=== PATIENT | female | born 1955 | race Caucasian/White ===

== ENCOUNTER 2025-03-13 22:30 | Inpatient (IN) | payer OTHER ==
[~2025-03-13] VITALS: Ht 165.1 cm; Wt 112.9 kg
--- NOTE | 2025-03-13 23:28 | ED.PDOC ---
History of Present Illness HPI Comments 69-year-old female with history of hypothyroidism brought in by EMS from home complaining of left lower back, buttock, flank and lateral hip and thigh pain status post heavy lifting injury. Patient states she was assisting her roommate today into a seated position after a fall. As she was lifting her roommate, she felt a sudden sharp pain in her left lower back and buttock, which now radiates to her lateral hip and thigh. She states that the pain is not present at rest, but is severe when she moves, and feels like a very sharp pain and spasm. She states she took 1/2 of a Soma tablet has been applying heat packs without relief. States she has been unable to ambulate and transfer independently due to the pain. She denies any saddle numbness, urinary or stool retention or incontinence or other injury. Chief Complaint: Back Pain Time Seen by MD: 22:40 Mode of Arrival: EMS Past Medical History PAST MEDICAL HISTORY: Thyroid Surgical History: Appendectomy, Cholecystectomy, Hysterectomy, Tonsillectomy Surgical History (Other): Thyroglossal cyst removal STAFF MIDWIFE/APPRENTICESHIP DIRECTOR History: No Pertinent STAFF MIDWIFE/APPRENTICESHIP DIRECTOR History Family History Family History: Reviewed,noncontributory to illness Social History Smoker: Non-Smoker Alcohol: Occasionally Drugs: Denies Drug Use Lives In: Home All Other Systems: Reviewed and Negative (Comprehensive systems review obtained and negative except for what is stated in the HPI.) Physical Exam General Appearance: No Apparent Distress, Obese HEENT: Other (Pupils and face symmetric. Moist mucous membranes.) Neck: Full Range of Motion, Non-Tender, Normal Inspection, Supple Respiratory: Lungs Clear, No Accessory Muscle Use, No Respiratory Distress, Normal Breath Sounds Cardiovascular: No Edema, No JVD, Regular Rate/Rhythm Breast Exam: Deferred Gastrointestinal: Non Tender, Soft Genitalia: Deferred Pelvic: Deferred Rectal: Deferred Extremities: Tender, Other (Left-sided lower lumbosacral, buttock, lateral hip and thigh soft tissue tenderness/spasm) Neurologic: Alert (Oriented x4), Normal Affect, Normal Mood, No Sensory Deficits, Other (Moves all extremities. No gross focal deficit.) Cerebellar Function: NOT DONE Reflexes: NOT DONE Skin: Dry, Normal Color, Warm Lymphatic: NOT DONE Was a procedure done? Was a procedure done?: No EKG EKG : Comments Atrial rhythm, rate 92, normal intervals, normal axis, normal QRS, no ST/T dotson ges. Baseline wander. Differential Dx Considerations may include: Musculoskeletal pain, muscle strain/spasm, disc disease, among others X-Ray, Labs, Meds, VS Vital Signs Date Time Temp Pulse Resp B/P (MAP) Pulse Ox O2 Delivery O2 Flow Rate FiO2 03/13/25 22:40 98.3 91 18 148/88 (108) 99 98.3 03/13/25 22:30 92 Lab Test 03/13/25 23:40 Range/Units White Blood Count 10.1 4.4-10.8 10^3/uL Red Blood Count 5.13 4.0-5.20 10^6/uL Hemoglobin 15.3 12.2-16.2 g/dL Hematocrit 46.6 H 36.0-46.0 % Mean Corpuscular Volume 90.8 80.0-100.0 fL Mean Corpuscular Hemoglobin 29.7 28.0-32.0 pg Mean Corpuscular Hemoglobin Concent 32.7 32.0-36.0 g/dL Red Cell Distribution Width 14.1 11.8-14.3 % Platelet Count 256 140-450 10^3/uL Mean Platelet Volume 7.6 6.9-10.8 fL Neutrophils (%) (Auto) 64.8 37.0-80.0 % Lymphocytes (%) (Auto) 24.9 10.0-50.0 % Monocytes (%) (Auto) 9.0 0.0-12.0 % Eosinophils (%) (Auto) 0.9 0.0-7.0 % Basophils (%) (Auto) 0.4 0.0-2.0 % Neutrophils # (Auto) 6.6 1.6-8.6 10 ^3/uL Lymphocytes # (Auto) 2.5 0.4-5.4 10 ^3/uL Monocytes # (Auto) 0.9 0-1.3 10 ^3/uL Eosinophils # (Auto) 0.1 0-0.8 10 ^3/uL Basophils # (Auto) 0 0-0.2 10 ^3/uL Nucleated Red Blood Cells 0.1 % Sodium Level 140 136-145 mmol/L Potassium Level 4.1 3.5-5.1 mmol/L Chloride Level 107 98-107 mmol/L Carbon Dioxide Level 22 20-31 mmol/L Anion Gap 11 5-15 Blood Urea Nitrogen 18 9-23 mg/dL Creatinine 1.12 H 0.550-1.02 mg/dL Glomerular Filtration Rate Calc 54 >90 mL/min BUN/Creatinine Ratio 16.1 10.0-20.0 Serum Glucose 119 H 74-106 mg/dL Calcium Level 9.6 8.7-10.4 mg/dL PROCEDURE(s): LS2CT - LS SPINE WO CONTRAST REASON: L low back/buttock/hip pain s/p heavy lifting ORDER NUMBER(s): [id number], ACCESSION NUMBER(s): [id number] EXAM: CT LS SPINE WO CONTRAST INDICATION: L low back/buttock/hip pain s/p heavy lifting TECHNIQUE: Axial images of the lumbar spine have been obtained along with coronal and sagittal reformatted images. CT scans at this facility use dose modulation, iterative reconstruction, and/or weight based dosing when appropriate to reduce radiation dose to as low as reasonably achievable. COMPARISON: None Dose: CTDIvol: 38.22 mGy, DLP: 1383.17 mGy.cm FINDINGS: There is transitional lumbosacral anatomy. There is age-indeterminate mild cortical irregularity of the superior endplate of T12. There is no retropulsion. There are degenerative changes of the lumbar spine characterized by endplate osteophytosis intervertebral disc space narrowing. There is vacuum disc phenomenon at L4-5. The paraspinal soft tissues are unremarkable. There is a right renal cyst, incompletely assessed. At T12-L1 through L3-4, there is no significant spinal canal or neural foraminal narrowing. At L4-5, there is intervertebral disc space narrowing and vacuum disc phenomenon. A disc protrusion effaces the thecal sac. There is facet arthropathy. There is at least mild left neural foraminal narrowing. And L5-S1, there is intervertebral disc space narrowing without significant spinal canal or neural foraminal stenosis. IMPRESSION: 1. No definite acute displaced fracture. Age-indeterminate mild cortical irregularity of the superior endplate of T12 without retropulsion. Comparison with any prior outside imaging would be helpful in assessing acuity and interval change. 2. Degenerative changes of the lumbar spine as detailed, with a disc protrusion at L4-5. This may be further evaluated with MRI if clinically indicated. X-Ray, Labs, Meds, VS Comment 69-year-old female with a history of thyroid disease brought in by EMS from home complaining of left-sided low back, buttock, flank, hip and lateral thigh pain status post heavy lifting injury Vitals remarkable for BP 148/88 Exam remarkable for lower left-sided lumbosacral, left buttock, lateral hip and thigh soft tissue tenderness/spasm CT LS spine: IMPRESSION: 1. No definite acute displaced fracture. Age-indeterminate mild cortical irregularity of the superior endplate of T12 without retropulsion. Comparison with any prior outside imaging would be helpful in assessing acuity and interval change. 2. Degenerative changes of the lumbar spine as detailed, with a disc protrusion at L4-5. This may be further evaluated with MRI if clinically indicated. CBC unremarkable, basic metabolic panel remarkable for creatinine 1.12, UA pen ding Patient treated with the following in the ED: [place] 5/325 mg 2 tabs p.o., Robaxin 1 g p.o., Zofran ODT 4 mg p.o. On re-evaluation, patient's pain has improved, but she is still having extreme difficulty moving and appears to be at risk for falls. Plan is to admit the patient for possible spine MRI, pain control and PT/OT evaluation. Time of 1ST Reevaluation: 23:27 Reevaluation 1ST: Unchanged Patient Education/Counseling: Diagnosis, Treatment, Need For Follow Up Family Education/Counseling: No Family Present SEPSIS Sepsis Screen Date sepsis recognized/suspect: Mar 13, 2025 Time Sepsis recognized/suspect: 2239 Recent Procedure: No On Antibiotic Therapy: No Respiratory Rate >20: No Heart Rate >90: No Temp<36 C (96.8 F) or >38.3 C: No SBP <90 or MAP <65 mmHG: No New Acute Mental Status Change: No Is the patient on CPAP, BIPAP,: No Physician Orders Ls Spine Wo Contrast (03/13/25 22:53) Urinalysis (03/13/25 22:53) Vital Signs Date Time Temp Pulse Resp B/P (MAP) Pulse Ox O2 Delivery O2 Flow Rate FiO2 03/13/25 22:40 98.3 91 18 148/88 (108) 99 98.3 03/13/25 22:30 92 Laboratory Tests Test 03/13/25 23:40 White Blood Count 10.1 10^3/uL (4.4-10.8) Departure 1 Departure Time of Disposition: 01:52 Impression: Primary Impression: Lumbar sprain Additional Impressions: Strain of left buttock Muscle strain of thigh Muscle spasm Degenerative disc disease Disposition: ADMITTED INPATIENT Admit to: Med Surg Condition: Guarded Critical Care Note Critical Care Time?: No Stability Stability form required: No Heart Score Heart Score: Heart Score Response (Comments) Value History N/A 0 EKG N/A 0 Age N/A 0 Risk Factors N/A 0 Troponin N/A 0 Total 0 CHARLES DHILLON MD Mar 13, 2025 23:28
[2025-03-14 00:05] LABS: Hematocrit 46.6 % (36.0-46.0); Hemoglobin 15.3 g/dL (12.2-16.2); Mean Corpuscular Hemoglobin 29.7 pg (28.0-32.0); Mean Corpuscular Volume 90.8 fL (80.0-100.0); Nucleated Red Blood Cells % 0.1 %
[2025-03-14 00:10] LABS: Potassium 4.1 mmol/L (3.5-5.1); Sodium 140 mmol/L (136-145)
[2025-03-14 00:11] LABS: Anion Gap 11 (5-15); Calcium 9.6 mg/dL (8.7-10.4); Carbon Dioxide 22 mmol/L (20-31)
[2025-03-14 00:16] LABS: BUN/Creatinine Ratio 16.1 (10.0-20.0); Blood Urea Nitrogen 18 mg/dL (9-23)
[2025-03-14 00:17] LABS: Chloride 107 mmol/L (98-107); Glucose 119 mg/dL (74-106)
--- NOTE | 2025-03-14 00:31 | DVH ---
EXAM: CT LS SPINE WO CONTRAST INDICATION: L low back/buttock/hip pain s/p heavy lifting TECHNIQUE: Axial images of the lumbar spine have been obtained along with coronal and sagittal reform atted images. CT scans at this facility use dose modulation, iterative reconstruction, and/or weight based dosing when appropriate to reduce radiation dose to as low as reasonably achievable. COMPARISON: None Dose: CTDIvol: 38.22 mGy, DLP: 1383.17 mGy.cm FINDINGS: There is transitional lumbosacral anatomy. There is age-indeterminate mild cortical irregularity of t he superior endplate of T12. There is no retropulsion. There are degenerative changes of the lumbar s pine characterized by endplate osteophytosis intervertebral disc space narrowing. There is vacuum di sc phenomenon at L4-5. The paraspinal soft tissues are unremarkable. There is a right renal cyst, inc ompletely assessed. At T12-L1 through L3-4, there is no significant spinal canal or neural foraminal narrowing. At L4-5, there is intervertebral disc space narrowing and vacuum disc phenomenon. A disc protrusion effaces the thecal sac. There is facet arthropathy. There is at least mild left neural foraminal arcenio rowing. And L5-S1, there is intervertebral disc space narrowing without significant spinal canal or neural fo raminal stenosis. IMPRESSION: 1. No definite acute displaced fracture. Age-indeterminate mild cortical irregularity of the superior endplate of T12 without retropulsion. Comparison with any prior outside imaging would be helpful in assessing acuity and interval change. 2. Degenerative changes of the lumbar spine as detailed, with a disc protrusion at L4-5. This may be further evaluated with MRI if clinically indicated.
--- NOTE | 2025-03-14 00:55 | ECG ---
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
[2025-03-14] MEDS ORDERED: ACETAMINOPHEN 325 MG TAB PO PRN (03:30)
[2025-03-14] MEDS ORDERED: MORPHINE SULFATE INJ 2 MG/ml SYRG IV PRN (03:30)
[2025-03-14] MEDS ORDERED: TEMAZEPAM 15 MG CAP PO PRN (03:30)
[2025-03-14] MEDS ORDERED: ONDANSETRON HCL 4 MG/2 ML VIAL IV PRN (03:30)
[2025-03-14] MEDS ORDERED: HYDROcodone-ACET 5/325MG TAB PO PRN (03:30)
--- NOTE | 2025-03-14 04:25 | DVHHP2 ---
History of Present Illness Reason for Visit: Lower back pain History of Present Illness 69-year-old female presents for evaluation of lower back pain. Patient states she was assisting her roommate today onto a seated position after they had a fall. She states that as she was lifting she felt a sudden sharp lower back pain. She states the pain radiates to her lateral hip and thigh. She states the pain is worse with movement. No lower extremity numbness. Past Medical History Thyroid Past Surgical History Cholecystectomy, hysterectomy, appendectomy, tonsillectomy Family History Noncontributory Smoke: No ALCOHOL: occassional Drugs: None Lives: with Family Review of Systems Review of Systems Review of systems are currently negative otherwise addressed in HPI. Medications Current Medications Medications Dose Ordered Sig/Dmitry Route Start Time Stop Time Status Last Admin Dose Admin Methocarbamol 500 mg QIDPRN PRN PO 03/14/25 03:30 UNV Acetaminophen/ Hydrocodone Bitart 1 tab Q4HP PRN PO 03/14/25 03:30 UNV Temazepam 15 mg QHSP PRN PO 03/14/25 03:30 UNV Ondansetron HCl 4 mg Q4HP PRN IV 03/14/25 03:30 UNV Acetaminophen 650 mg Q6HP PRN PO 03/14/25 03:30 UNV Morphine Sulfate 2 mg Q6HPRN PRN IV 03/14/25 03:30 UNV Exam Vital Signs Vital Signs Date Time Temp Pulse Resp B/P (MAP) Pulse Ox O2 Delivery O2 Flow Rate FiO2 03/13/25 22:40 98.3 91 18 148/88 (108) 99 98.3 Exam Gen: 69-year-old female in mild distress Skin: Warm, dry, normal color and texture, no rash. HEENT: Normocephalic atraumatic, mucous membranes moist and pink. Neck: Cervical and supraclavicular nodes normal without enlargement, trachea is midline, thyroid gland is normal without masses. Pulmonary: Clear to auscultation and percussion bilaterally. Cardiac: Regular rate and rhythm. No murmur Abdomen: Soft, nontender, nondistended, bowel sounds present all 4 quadrants, no guarding, no rigidity, no organomegaly. Extremities: No cyanosis, clubbing, no edema Neuro: Cranial nerves II through XII grossly intact, normal affect and speech, no focal motor deficits. Labs/Xrays ORDERING PHYSICIAN: CHARLES DHILLON MD PROCEDURE(s): LS2CT - LS SPINE WO CONTRAST REASON: L low back/buttock/hip pain s/p heavy lifting ORDER NUMBER(s): [id number], ACCESSION NUMBER(s): [id number] EXAM: CT LS SPINE WO CONTRAST INDICATION: L low back/buttock/hip pain s/p heavy lifting TECHNIQUE: Axial images of the lumbar spine have been obtained along with coronal and sagittal reformatted images. CT scans at this facility use dose modulation, iterative reconstruction, and/or weight based dosing when appropriate to reduce radiation dose to as low as reasonably achievable. COMPARISON: None Dose: CTDIvol: 38.22 mGy, DLP: 1383.17 mGy.cm FINDINGS: There is transitional lumbosacral anatomy. There is age-indeterminate mild cortical irregularity of the superior endplate of T12. There is no retropulsion. There are degenerative changes of the lumbar spine characterized by endplate osteophytosis intervertebral disc space narrowing. There is vacuum disc phenomenon at L4-5. The paraspinal soft tissues are unremarkable. There is a right renal cyst, incompletely assessed. At T12-L1 through L3-4, there is no significant spinal canal or neural foraminal narrowing. At L4-5, there is intervertebral disc space narrowing and vacuum disc phenomenon. A disc protrusion effaces the thecal sac. There is facet arthropathy. There is at least mild left neural foraminal narrowing. And L5-S1, there is intervertebral disc space narrowing without significant spinal canal or neural foraminal stenosis. IMPRESSION: 1. No definite acute displaced fracture. Age-indeterminate mild cortical irregularity of the superior endplate of T12 without retropulsion. Comparison with any prior outside imaging would be helpful in assessing acuity and interval change. 2. Degenerative changes of the lumbar spine as detailed, with a disc protrusion at L4-5. This may be further evaluated with MRI if clinically indicated. Labs Test 03/13/25 23:40 Range/Units White Blood Count 10.1 4.4-10.8 10^3/uL Red Blood Count 5.13 4.0-5.20 10^6/uL Hemoglobin 15.3 12.2-16.2 g/dL Hematocrit 46.6 H 36.0-46.0 % Mean Corpuscular Volume 90.8 80.0-100.0 fL Mean Corpuscular Hemoglobin 29.7 28.0-32.0 pg Mean Corpuscular Hemoglobin Concent 32.7 32.0-36.0 g/dL Red Cell Distribution Width 14.1 11.8-14.3 % Platelet Count 256 140-450 10^3/uL Mean Platelet Volume 7.6 6.9-10.8 fL Neutrophils (%) (Auto) 64.8 37.0-80.0 % Lymphocytes (%) (Auto) 24.9 10.0-50.0 % Monocytes (%) (Auto) 9.0 0.0-12.0 % Eosinophils (%) (Auto) 0.9 0.0-7.0 % Basophils (%) (Auto) 0.4 0.0-2.0 % Neutrophils # (Auto) 6.6 1.6-8.6 10 ^3/uL Lymphocytes # (Auto) 2.5 0.4-5.4 10 ^3/uL Monocytes # (Auto) 0.9 0-1.3 10 ^3/uL Eosinophils # (Auto) 0.1 0-0.8 10 ^3/uL Basophils # (Auto) 0 0-0.2 10 ^3/uL Nucleated Red Blood Cells 0.1 % Sodium Level 140 136-145 mmol/L Potassium Level 4.1 3.5-5.1 mmol/L Chloride Level 107 98-107 mmol/L Carbon Dioxide Level 22 20-31 mmol/L Anion Gap 11 5-15 Blood Urea Nitrogen 18 9-23 mg/dL Creatinine 1.12 H 0.550-1.02 mg/dL Glomerular Filtration Rate Calc 54 >90 mL/min BUN/Creatinine Ratio 16.1 10.0-20.0 Serum Glucose 119 H 74-106 mg/dL Calcium Level 9.6 8.7-10.4 mg/dL SEPSIS Sepsis Screen Date sepsis recognized/suspect: Mar 13, 2025 Time Sepsis recognized/suspect: 2239 Recent Procedure: No On Antibiotic Therapy: No Respiratory Rate >20: No Heart Rate >90: No Temp<36 C (96.8 F) or >38.3 C: No SBP <90 or MAP <65 mmHG: No New Acute Mental Status Change: No Is the patient on CPAP, BIPAP,: No Physician Orders Ls Spine Wo Contrast (03/13/25 22:53) Urinalysis (03/13/25 22:53) Methocarbamol (Robaxin) (03/14/25 03:30) Regular Diet (03/14/25 Breakfast) Pt Request For Service (03/14/25 03:30) Admit (03/14/25 03:30) Hydrocodone-Acet 5/325mg Tab ([place] 532 (03/14/25 03:30) Temazepam (Restoril) (03/14/25 03:30) Ondansetron Hcl (Zofran) (03/14/25 03:30) Condition: Stable (03/14/25 03:30) Acetaminophen Tablet (Tylenol Tablet) (03/14/25 03:30) Bedrest With Bathroom Privileg (03/14/25 03:30) Morphine Sulfate Injection (03/14/25 03:30) Vital Signs Date Time Temp Pulse Resp B/P (MAP) Pulse Ox O2 Delivery O2 Flow Rate FiO2 03/13/25 22:40 98.3 91 18 148/88 (108) 99 98.3 03/13/25 22:30 92 Laboratory Tests Test 03/13/25 23:40 White Blood Count 10.1 10^3/uL (4.4-10.8) Assessment/Plan Assessment/Plan Assessment Lumbar sprain Muscle spasm Degenerative disc disease Plan Admit the patient to [facility] to the hospitalist Physical therapy eval Pain management Continue treatment per orders. Plan discussed with: Patient My Orders Orders - CAPRICE RODRIGEZ AGACNP Procedure Category Date Status Time Methocarbamol PHA 03/14/25 In Process (Robaxin) 03:30 Regular Diet DIET 03/14/25 Transmitted Breakfast Pt Request For Service PT 03/14/25 Logged 03:30 Admit ADMIT 03/14/25 Transmitted 03:30 Hydrocodone-Acet PHA 03/14/25 In Process 5/325mg Tab ([place] 03:30 Temazepam (Restoril) PHA 03/14/25 Logged 03:30 Ondansetron Hcl PHA 03/14/25 Logged (Zofran) 03:30 Condition: Stable ANTONIO 03/14/25 In Process 03:30 Acetaminophen Tablet PHA 03/14/25 Logged (Tylenol Tablet) 03:30 Bedrest With Bathroom ANTONIO 03/14/25 In Process Privileg 03:30 Morphine Sulfate [facility] 03/14/25 Logged Injection 03:30 Date of Service: Mar 14, 2025 Billing Provider: CAPRICE RODRIGEZ Common Visit Codes: [id number] INP/OBS CARE (MOD) CAPRICE RODRIGEZ Mar 14, 2025 04:25
[2025-03-14] MEDS: METHOCARBAMOL 500 MG TAB PO ONE (05:31)
[2025-03-14] MEDS: HYDROcodone-ACET 5/325MG TAB PO ONE (05:31)
[2025-03-14 05:45] VITALS: PULSE 86; RESP 16; O2SAT 99
[2025-03-14 08:05] VITALS: PULSE 88; RESP 12; O2SAT 93
[2025-03-14 08:32] LABS: Urine Protein, UAD 2+ (Negative)
[2025-03-14] MEDS: LIDOCAINE 5% TOPICAL PATCH TOP SCH (10:13)
[2025-03-14] MEDS: METHOCARBAMOL 500 MG TAB PO PRN (10:18)
[2025-03-14] MEDS: methylPREDNISolone SOD SUCC 40 MG/ML VL IV SCH (14:24)
--- NOTE | 2025-03-14 16:24 | DVHPN2 ---
Subjective Complains of spasms in her left lower back and leg region. Otherwise she feels better. Robaxin is helping her however she is hesitant to take it frequently. Lumbar spine CT shows a questionable T12 compression fracture. Changes from previous H/P or p: No Changes Objective Vitals Vital Signs Date Time Temp Pulse Resp B/P (MAP) Pulse Ox O2 Delivery O2 Flow Rate FiO2 03/14/25 16:00 91 17 174/82 (112) 93 03/14/25 14:00 97.7 97.7 03/14/25 08:05 Room Air* 0 21 Intake/Output Alert awake oriented x3. Comfortable in bed without distress. HEENT neck supple no JVD. Heart regular rate and rhythm S1 and S2. Lungs fair air movement without rales wheezes. Abdomen obese soft nontender positive bowel sounds. Extremities no edema positive pulses. Able to move lower extremities without problems. No focal neurological deficits noted in upper or lower extremities. Medications Current Medications Medications Dose Ordered Sig/Dmitry Route Start Time Stop Time Status Last Admin Dose Admin Methocarbamol 500 mg QIDPRN PRN PO 03/14/25 03:30 03/14/25 10:18 500 MG Acetaminophen/ Hydrocodone Bitart 1 tab Q4HP PRN PO 03/14/25 03:30 Temazepam 15 mg QHSP PRN PO 03/14/25 03:30 Ondansetron HCl 4 mg Q4HP PRN IV 03/14/25 03:30 Acetaminophen 650 mg Q6HP PRN PO 03/14/25 03:30 Morphine Sulfate 2 mg Q6HPRN PRN IV 03/14/25 03:30 Lidocaine 1 patch DAILY TOP 03/14/25 10:00 03/14/25 10:13 1 PATCH Methylprednisolone Sodium Succinate 40 mg Q8HR IV 03/14/25 14:00 03/14/25 14:24 40 MG Clonidine HCl 0.1 mg Q6HP PRN PO 03/14/25 16:30 UNV Laboratory Results Laboratory Tests 03/13/25 23:40 Chemistry Test 03/13/25 23:40 Calcium Level 9.6 mg/dL (8.7-10.4) Urinalysis Test 03/13/25 08:07 Urine Color Yellow (Yellow) Urine Clarity Clear (Clear) Urine pH 6.0 (5.0-9.0) Urine Specific [place] 1.024 (1.001-1.035) Urine Protein 2+ (Negative) H Urine Ketones Negative (Negative) Urine Blood Trace /uL (Negative) H Urine Nitrite Negative (Negative) Urine Bilirubin Negative (Negative) Urine Urobilinogen Normal mg/dL (Negative) Urine Leukocyte Esterase Negative /uL (Negative) Urine RBC 3 /hpf (0 - 4) Urine Microscopic WBC 2 /HPF (0-5) Urine Squamous Epithelial Cells Few /hpf (<5) Urine Bacteria None seen /hpf (None Seen) Urine Hyaline Casts Few /lpf (0 - 2) Urine Mucus Few (None Seen) Urine Glucose Normal mg/dL (Normal) Assessment/Plan Assessment/Plan We will order MRI/CT of the thoracic spine to further evaluate questionable T12 fracture. Otherwise encouraged Robaxin and pain medications. I will start her on IV steroids overnight to improve acute pain. Otherwise physical therapy evaluation. Continue rest of supportive care and treatment. Further clinical management per clinical course. Discussed with the patient regarding care plan. Plan discussed with: Patient My Orders Orders - RADHA ADLER MD Procedure Category Date Status Time Methylprednisolone PHA 03/14/25 In Process Sod Succ (Solu Medrol 14:00 * Cpa Tax CONS 03/14/25 Transmitted Consult Clonidine Hcl Tablet PHA 03/14/25 Logged ([place]ap[place] Tablet) 16:30 Problem List: (1) Strain of left buttock (2) Muscle strain of thigh (3) Lumbar sprain (4) Muscle spasm (5) Degenerative disc disease Date of Service: Mar 14, 2025 Billing Provider: RADHA ADLER MD Common Visit Codes: [id number] INP/OBS CARE(MOD) RADHA ADLER MD Mar 14, 2025 16:24
[2025-03-14 17:05] VITALS: BP 178/114; PULSE 95; RESP 20; TEMP 97.7; O2SAT 96
[2025-03-14] MEDS ORDERED: THYR60TA PO (19:15)
[2025-03-14 20:00] VITALS: PULSE 92; RESP 16
[2025-03-14 21:00] VITALS: BP 157/87; PULSE 96; RESP 18; TEMP 98.2; O2SAT 99
--- NOTE | 2025-03-14 22:08 | DVH ---
CT OF THE THORACIC SPINE WITHOUT CONTRAST HISTORY: T12 fx , back pain COMPARISON: None TECHNIQUE: Axial images through the thoracic spine were obtained without contrast. Coronal and sagitt al reformats were obtained. One or more of the following radiation dose reduction techniques were use d for this examination: automated exposure control, adjustment of the mA and/or kV according to patie nt size, use of iterative reconstruction technique. Dose: CTDI vol: 36.8 mGy, DLP: 1257.95 mGy.cm FINDINGS: Age-indeterminate mild cortical irregularity about the superior endplate of the T11 vertebral body (d escribed as T12 on the prior lumbar spine study, though counting from the craniocaudal direction on t his study). No retropulsion or prevertebral swelling/blood products. The vertebral body heights are otherwise well-maintained without evidence of fracture. There are degenerative changes of the thorac ic spine characterized by endplate osteophytosis and intervertebral disc space narrowing. There is de xtroscoliosis. There is no CT evidence of high-grade spinal canal or neural foraminal stenosis. The p araspinal soft tissues are unremarkable. IMPRESSION: 1. Age-indeterminate cortical irregularity of the superior endplate of T11 without retropulsion. 2. Degenerative changes of the thoracic spine as detailed.
[2025-03-15] VITALS (7 sets, daily range): BP systolic 107–168; BP diastolic 69–94; PULSE 70–92; RESP 16–18; TEMP 97.5–98.6; O2SAT 93–97
--- NOTE | 2025-03-15 15:19 | DVHPN2 ---
Progress Note - Dictate Date Seen: Mar 15, 2025 Medical Necessity Reason Pt with a Central, PICC or Fol: No Subjective She is feeling better today. CT of the spine shows a T11 indeterminate fracture. Gotten out of bed with physical therapy. vital signs Vital Sign Date Time Temp Pulse Resp B/P (MAP) Pulse Ox O2 Delivery O2 Flow Rate FiO2 03/15/25 13:00 97.5 86 18 133/84 (100) 93 97.5 03/14/25 20:00 Room Air* 0 21 Total Intake and Output 03/14/25 03/14/25 03/15/25 15:00 23:00 07:00 Intake Total 800 ml Output Total 600 ml Balance 200 ml medications Current Medications Medications Dose Ordered Sig/Dmitry Route Start Time Stop Time Status Last Admin Dose Admin Methocarbamol 500 mg QIDPRN PRN PO 03/14/25 03:30 03/15/25 09:40 500 MG Acetaminophen/ Hydrocodone Bitart 1 tab Q4HP PRN PO 03/14/25 03:30 Temazepam 15 mg QHSP PRN PO 03/14/25 03:30 Ondansetron HCl 4 mg Q4HP PRN IV 03/14/25 03:30 Acetaminophen 650 mg Q6HP PRN PO 03/14/25 03:30 Morphine Sulfate 2 mg Q6HPRN PRN IV 03/14/25 03:30 Lidocaine 1 patch DAILY TOP 03/14/25 10:00 03/15/25 09:40 1 PATCH Methylprednisolone Sodium Succinate 40 mg Q8HR IV 03/14/25 14:00 03/15/25 13:11 40 MG Clonidine HCl 0.1 mg Q6HP PRN PO 03/14/25 16:30 03/15/25 09:49 0.1 MG Ibuprofen 800 mg TIDWM PO 03/15/25 18:00 Famotidine 20 mg DAILY PO 03/16/25 10:00 Enoxaparin Sodium 40 mg DAILY SC 03/16/25 10:00 Thyroid 60 mg DAILY PO 03/16/25 10:00 objective Abdomen soft obese positive bowel sounds. HEENT neck supple no JVD. Heart regular rate rhythm S1-S2. Lungs without rales wheezes. Extremities no edema positive pulses. Neurologically no focal deficits. laboratory and microbiology Laboratory Tests 03/13/25 23:40 Test 03/13/25 23:40 Range/Units Serum Glucose 119 H 74-106 mg/dL Assessment/Plan Continue present management. Encouraged activity ambulation. We will DC the Vale catheter in morning for her request. Home health for home PT has been arranged. Consider discharge home tomorrow if she remains stable. Discussed with the patient and nurse regarding care plan at bedside Problems(with codes): (1) Muscle spasm (2) Lumbar sprain (3) Muscle strain of thigh (4) Strain of left buttock (5) Degenerative disc disease Plan discussed with: Patient RADHA ADLER MD Mar 15, 2025 15:19
--- NOTE | 2025-03-15 15:22 | DVHPN2 ---
Subjective Complains of spasms in her left lower back and leg region. Otherwise she feels better. Robaxin is helping her however she is hesitant to take it frequently. Lumbar spine CT shows a questionable T12 compression fracture. Changes from previous H/P or p: No Changes Objective Vitals Vital Signs Date Time Temp Pulse Resp B/P (MAP) Pulse Ox O2 Delivery O2 Flow Rate FiO2 03/15/25 13:00 97.5 86 18 133/84 (100) 93 97.5 03/14/25 20:00 Room Air* 0 21 Intake/Output Intake and Output 03/15/25 06:59 Intake Total 800 ml Output Total 600 ml Balance 200 ml Intake Oral 800 ml Output Urine Total 600 ml Medications Current Medications Medications Dose Ordered Sig/Dmitry Route Start Time Stop Time Status Last Admin Dose Admin Methocarbamol 500 mg QIDPRN PRN PO 03/14/25 03:30 03/15/25 09:40 500 MG Acetaminophen/ Hydrocodone Bitart 1 tab Q4HP PRN PO 03/14/25 03:30 Temazepam 15 mg QHSP PRN PO 03/14/25 03:30 Ondansetron HCl 4 mg Q4HP PRN IV 03/14/25 03:30 Acetaminophen 650 mg Q6HP PRN PO 03/14/25 03:30 Morphine Sulfate 2 mg Q6HPRN PRN IV 03/14/25 03:30 Lidocaine 1 patch DAILY TOP 03/14/25 10:00 03/15/25 09:40 1 PATCH Methylprednisolone Sodium Succinate 40 mg Q8HR IV 03/14/25 14:00 03/15/25 13:11 40 MG Clonidine HCl 0.1 mg Q6HP PRN PO 03/14/25 16:30 03/15/25 09:49 0.1 MG Ibuprofen 800 mg TIDWM PO 03/15/25 18:00 Famotidine 20 mg DAILY PO 03/16/25 10:00 Enoxaparin Sodium 40 mg DAILY SC 03/16/25 10:00 Thyroid 60 mg DAILY PO 03/16/25 10:00 Laboratory Results Laboratory Tests 03/13/25 23:40 Urinalysis Test 03/13/25 08:07 Urine Color Yellow (Yellow) Urine Clarity Clear (Clear) Urine pH 6.0 (5.0-9.0) Urine Specific [place] 1.024 (1.001-1.035) Urine Protein 2+ (Negative) H Urine Ketones Negative (Negative) Urine Blood Trace /uL (Negative) H Urine Nitrite Negative (Negative) Urine Bilirubin Negative (Negative) Urine Urobilinogen Normal mg/dL (Negative) Urine Leukocyte Esterase Negative /uL (Negative) Urine RBC 3 /hpf (0 - 4) Urine Microscopic WBC 2 /HPF (0-5) Urine Squamous Epithelial Cells Few /hpf (<5) Urine Bacteria None seen /hpf (None Seen) Urine Hyaline Casts Few /lpf (0 - 2) Urine Mucus Few (None Seen) Urine Glucose Normal mg/dL (Normal) Assessment/Plan Assessment/Plan Continue present management. Please see my earlier progress note that is dictated. Plan discussed with: Patient My Orders Orders - RADHA ADLER MD Procedure Category Date Status Time Clonidine Hcl Tablet PHA 03/14/25 In Process (Catapres Tablet) 16:[address] 03/14/25 Resulted Contras 16:21 Ibuprofen Tablet PHA 03/15/25 In Process (Motrin Tablet) 18:00 Famotidine Tablet PHA 03/16/25 In Process (Pepcid Tablet) 10:00 Enoxaparin Sodium PHA 03/16/25 In Process (Lovenox) 10:00 Thyroid (Many PHA 03/16/25 In Process Thyroid) 10:00 Discontinue Vale ANTONIO 03/16/25 In Process Catheter 07:00 Date of Service: Mar 15, 2025 Billing Provider: RADHA ADLER MD Common Visit Codes: [id number] INP/OBS CARE(MOD) RADHA ADLER MD Mar 15, 2025 15:22
[2025-03-15] MEDS: IBUPROFEN 800 MG TAB PO SCH (18:21)
[2025-03-16 05:00] VITALS: BP 146/79; PULSE 68; RESP 18; TEMP 97.9; O2SAT 98
[2025-03-16 09:00] VITALS: BP 145/85; PULSE 80; RESP 20; TEMP 98.2; O2SAT 91
[2025-03-16] MEDS: ENOXAPARIN SOD 40 MG/0.4 ML SYRINGE SC SCH (09:25)
[2025-03-16] MEDS: FAMOTIDINE 20 MG TAB PO SCH (09:25)
[2025-03-16] MEDS: THYROID 60 MG TAB PO SCH (09:25)
[2025-03-16 13:00] VITALS: BP 145/87; PULSE 80; RESP 20; TEMP 98.6; O2SAT 96
--- NOTE | 2025-03-16 13:17 | DVHPN2 ---
Subjective She is feeling better. Apparently due to [place] home physical therapy is unable to be arranged. Patient wants to go and live with her daughter in [facility]. Changes from previous H/P or p: No Changes Objective Vitals Vital Signs Date Time Temp Pulse Resp B/P (MAP) Pulse Ox O2 Delivery O2 Flow Rate FiO2 03/16/25 09:00 98.2 80 20 145/85 (105) 91 98.2 03/16/25 08:15 Room Air* 0 21 Intake/Output Intake and Output 03/16/25 07:00 Intake Total 1180 ml Output Total 1300 ml Balance -120 ml Intake Oral 1180 ml Output Urine Total 1300 ml Exam Comfortable in bed.. HEENT neck supple no JVD. Heart regular rate rhythm S1- S2. Lungs without rales wheezes. Abdomen obese soft positive bowel sounds. Extremities no edema positive pulses. Neurologic no focal deficits. Normal strength. Medications Current Medications Medications Dose Ordered Sig/Dmitry Route Start Time Stop Time Status Last Admin Dose Admin Methocarbamol 500 mg QIDPRN PRN PO 03/14/25 03:30 03/16/25 09:26 500 MG Acetaminophen/ Hydrocodone Bitart 1 tab Q4HP PRN PO 03/14/25 03:30 Temazepam 15 mg QHSP PRN PO 03/14/25 03:30 Ondansetron HCl 4 mg Q4HP PRN IV 03/14/25 03:30 Acetaminophen 650 mg Q6HP PRN PO 03/14/25 03:30 Morphine Sulfate 2 mg Q6HPRN PRN IV 03/14/25 03:30 Lidocaine 1 patch DAILY TOP 03/14/25 10:00 03/16/25 09:24 1 PATCH Methylprednisolone Sodium Succinate 40 mg Q8HR IV 03/14/25 14:00 03/16/25 05:56 40 MG Clonidine HCl 0.1 mg Q6HP PRN PO 03/14/25 16:30 03/15/25 09:49 0.1 MG Ibuprofen 800 mg TIDWM PO 03/15/25 18:00 03/16/25 09:26 800 MG Famotidine 20 mg DAILY PO 03/16/25 10:00 03/16/25 09:25 20 MG Enoxaparin Sodium 40 mg DAILY SC 03/16/25 10:00 03/16/25 09:25 40 MG Thyroid 60 mg DAILY PO 03/16/25 10:00 03/16/25 09:25 60 MG Laboratory Results Laboratory Tests 03/13/25 23:40 Urinalysis Test 03/13/25 08:07 Urine Color Yellow (Yellow) Urine Clarity Clear (Clear) Urine pH 6.0 (5.0-9.0) Urine Specific [place] 1.024 (1.001-1.035) Urine Protein 2+ (Negative) H Urine Ketones Negative (Negative) Urine Blood Trace /uL (Negative) H Urine Nitrite Negative (Negative) Urine Bilirubin Negative (Negative) Urine Urobilinogen Normal mg/dL (Negative) Urine Leukocyte Esterase Negative /uL (Negative) Urine RBC 3 /hpf (0 - 4) Urine Microscopic WBC 2 /HPF (0-5) Urine Squamous Epithelial Cells Few /hpf (<5) Urine Bacteria None seen /hpf (None Seen) Urine Hyaline Casts Few /lpf (0 - 2) Urine Mucus Few (None Seen) Urine Glucose Normal mg/dL (Normal) Assessment/Plan Assessment/Plan Continue present management. Continue activity and ambulation. If she remains stable plan to discharge her home tomorrow with her daughter. Patient's daughter is going to provide walker. Discussed with the patient and nurse regarding care plan. Plan discussed with: Patient, Other My Orders Orders - RADHA ADLER MD Procedure Category Date Status Time Ibuprofen Tablet PHA 03/15/25 In Process (Motrin Tablet) 18:00 Famotidine Tablet PHA 03/16/25 In Process (Pepcid Tablet) 10:00 Enoxaparin Sodium PHA 03/16/25 In Process (Lovenox) 10:00 Thyroid ([place] PHA 03/16/25 In Process Thyroid) 10:00 Discontinue Vale ANTONIO 03/16/25 In Process Catheter 07:00 Problem List: (1) Degenerative disc disease (2) Muscle spasm (3) Lumbar sprain (4) Muscle strain of thigh (5) Strain of left buttock Date of Service: Mar 16, 2025 Billing Provider: RADHA ADLER MD Common Visit Codes: [id number] INP/OBS CARE(MOD) RADHA ADLER MD Mar 16, 2025 13:17
[2025-03-16 17:00] VITALS: BP 155/91; PULSE 84; RESP 20; TEMP 98.8; O2SAT 96
[2025-03-16 21:00] VITALS: BP 170/91; PULSE 89; RESP 14; TEMP 98; O2SAT 95
[2025-03-17 01:00] VITALS: BP 163/69; PULSE 81; RESP 14; TEMP 97.9; O2SAT 90
[2025-03-17 02:00] VITALS: BP 149/88; PULSE 75
[2025-03-17 05:00] VITALS: BP 161/95; PULSE 73; RESP 15; TEMP 97.6; O2SAT 94
[2025-03-17] MEDS: hydrALAZINE HCL 20 MG/ML VL IV PRN (06:05)
[2025-03-17 09:00] VITALS: BP 159/84; PULSE 93; RESP 20; TEMP 98; O2SAT 99
[2025-03-17] MEDS ORDERED: HYDR-4902 PO (12:24)
[2025-03-17] MEDS ORDERED: CLON0.1T PO (12:24)
[2025-03-17] MEDS ORDERED: IBUP-1454 PO (12:24)
[2025-03-17] MEDS ORDERED: METH-1181 PO (12:24)
--- NOTE | 2025-03-17 12:25 | DVHDS2 ---
Discharge Summary Date of Admission Mar 14, 2025 at 03:30 Date of Discharge: Mar 17, 2025 Labs/Diagnostic Data: Laboratory Results Test 03/13/25 23:40 03/13/25 08:07 White Blood Count 10.1 10^3/uL (4.4-10.8) Red Blood Count 5.13 10^6/uL (4.0-5.20) Hemoglobin 15.3 g/dL (12.2-16.2) Hematocrit 46.6 % (36.0-46.0) Mean Corpuscular Volume 90.8 fL (80.0-100.0) Mean Corpuscular Hemoglobin 29.7 pg (28.0-32.0) Mean Corpuscular Hemoglobin Concent 32.7 g/dL (32.0-36.0) Red Cell Distribution Width 14.1 % (11.8-14.3) Platelet Count 256 10^3/uL (140-450) Mean Platelet Volume 7.6 fL (6.9-10.8) Neutrophils (%) (Auto) 64.8 % (37.0-80.0) Lymphocytes (%) (Auto) 24.9 % (10.0-50.0) Monocytes (%) (Auto) 9.0 % (0.0-12.0) Eosinophils (%) (Auto) 0.9 % (0.0-7.0) Basophils (%) (Auto) 0.4 % (0.0-2.0) Neutrophils # (Auto) 6.6 10 ^3/uL (1.6-8.6) Lymphocytes # (Auto) 2.5 10 ^3/uL (0.4-5.4) Monocytes # (Auto) 0.9 10 ^3/uL (0-1.3) Eosinophils # (Auto) 0.1 10 ^3/uL (0-0.8) Basophils # (Auto) 0 10 ^3/uL (0-0.2) Nucleated Red Blood Cells 0.1 % Sodium Level 140 mmol/L (136-145) Potassium Level 4.1 mmol/L (3.5-5.1) Chloride Level 107 mmol/L (98-107) Carbon Dioxide Level 22 mmol/L (20-31) Anion Gap 11 (5-15) Blood Urea Nitrogen 18 mg/dL (9-23) Creatinine 1.12 mg/dL (0.550-1.02) Glomerular Filtration Rate Calc 54 mL/min (>90) BUN/Creatinine Ratio 16.1 (10.0-20.0) Serum Glucose 119 mg/dL (74-106) Calcium Level 9.6 mg/dL (8.7-10.4) Urine Color Yellow (Yellow) Urine Clarity Clear (Clear) Urine pH 6.0 (5.0-9.0) Urine Specific [place] 1.024 (1.001-1.035) Urine Protein 2+ (Negative) Urine Ketones Negative (Negative) Urine Blood Trace /uL (Negative) Urine Nitrite Negative (Negative) Urine Bilirubin Negative (Negative) Urine Urobilinogen Normal mg/dL (Negative) Urine Leukocyte Esterase Negative /uL (Negative) Urine RBC 3 /hpf (0 - 4) Urine Microscopic WBC 2 /HPF (0-5) Urine Squamous Epithelial Cells Few /hpf (<5) Urine Bacteria None seen /hpf (None Seen) Urine Hyaline Casts Few /lpf (0 - 2) Urine Mucus Few (None Seen) Urine Glucose Normal mg/dL (Normal) Other Laboratory Tests 03/13/25 23:40 Brief Hx & Hospital Course: 69-year-old female presents for evaluation of lower back pain. Patient states she was assisting her roommate today onto a seated position after they had a fall. She states that as she was lifting she felt a sudden sharp lower back pain. She states the pain radiates to her lateral hip and thigh. She states the pain is worse with movement. No lower extremity numbness. She is admitted and received empiric treatment with the muscle relaxants pain medications and physical therapy. Patient's symptoms have improved and resolved. Patient clinically stable back to baseline normal status. Therefore she has been discharged home with instructions to continue the medications as prescribed and follow up closely with her primary care physician to manage her back pain problems. Patient counseled and educated regarding diet exercise weight loss given her BMI 41. She is also told that weight loss would help improve her back pain as well. Patient verbalized understanding over hospital diagnosis, treatment she received, discharge medications, discharge instructions and agree with care plan as outlined. Operations or Procedures ORDER NUMBER(s): [id number], ACCESSION NUMBER(s): [id number] CT OF THE THORACIC SPINE WITHOUT CONTRAST HISTORY: T12 fx , back pain COMPARISON: None TECHNIQUE: Axial images through the thoracic spine were obtained without contrast. Coronal and sagittal reformats were obtained. One or more of the following radiation dose reduction techniques were used for this examination: automated exposure control, adjustment of the mA and/or kV according to patient size, use of iterative reconstruction technique. Dose: CTDI vol: 36.8 mGy, DLP: 1257.95 mGy.cm FINDINGS: Age-indeterminate mild cortical irregularity about the superior endplate of the T11 vertebral body (described as T12 on the prior lumbar spine study, though counting from the craniocaudal direction on this study). No retropulsion or prevertebral swelling/blood products. The vertebral body heights are otherwise well-maintained without evidence of fracture. There are degenerative changes of the thoracic spine characterized by endplate osteophytosis and intervertebral disc space narrowing. There is dextroscoliosis. There is no CT evidence of high- grade spinal canal or neural foraminal stenosis. The paraspinal soft tissues are unremarkable. IMPRESSION: 1. Age-indeterminate cortical irregularity of the superior endplate of T11 without retropulsion. 2. Degenerative changes of the thoracic spine as detailed. Condition at Discharge: Stable Final Diagnosis/Problems List Low back pain, DJD lumbar spine, obesity with a BMI 41, muscle spasms Discharge Disposition: Home Discharge Instruct/Medications Diet: Consistent carbohydrate, Cardiac 2g Na,low cholest Activity: No Restrictions, As Tolerated Follow Up/Referral: Primary care physician in two weeks for further management of your back pain as appropriate Medications: As prescribed New Medications: Clonidine Hydrochloride (Clonidine Hcl) 0.1 Mg Tab 0.1 MG PO BID, #30 TAB 1 Refill Hydrocodone-Acetaminophen (Hydrocodone Bitartrate/AC 5-325 mg) 1 Tab Tab 1 TAB PO Q8HPRN PRN, #7 TAB Ibuprofen (Ibuprofen) 600 Mg Tab 1 TAB PO TID PRN, #90 TAB Methocarbamol (Methocarbamol) 500 Mg Tab 500 MG PO Q6HPRN PRN, #14 TAB Continued Medications: Thyroid (Helm Thyroid) 60 Mg Tab 1 TAB PO DAILY, #30 TAB 5 Refills Scheduled Clonidine Hydrochloride (Clonidine Hcl), 0.1 MG PO BID Thyroid (Helm Thyroid), 1 TAB PO DAILY, (Reported) Scheduled PRN Hydrocodone-Acetaminophen (Hydrocodone Bitartrate/AC 5-325 mg), 1 TAB PO Q8HPRN PRN Ibuprofen (Ibuprofen), 1 TAB PO TID PRN Methocarbamol (Methocarbamol), 500 MG PO Q6HPRN PRN Discharge Statement: "Patient was advised to return to the ER or call 911 if any headaches, dizziness, shortness of breath, chest pain, abdominal pain, bleeding, fevers, or worsening of medical condition. Patient was counseled about treatment plan, medications, possible side effects, patientverbalized understanding. All questions were answered to the best of my ability. This discharge took greater then 30 minutes in planning, reviewing documentation, counseling the patient, and discussing with other team members." ASSESSMENT ASSESSMENT Assessment Low back pain, DJD lumbar spine, obesity with a BMI 41, muscle spasms Date of Service: Mar 17, 2025 Billing Provider: RADHA ADLER MD Common Visit Codes: [id number] DISCH DAY >30min RADHA ADLER MD Mar 17, 2025 12:25
[2025-03-17 13:00] VITALS: BP 144/80; PULSE 87; RESP 20; TEMP 98.1; O2SAT 93
[2025-03-17 13:08] VITALS: BP 144/80; TEMP 36.7
== END 2025-03-17 15:30 | disposition home health service (06) | DRG 552 ==
LOC: EDBD 22:30 → ER 22:30 → OVERFLOW 03-14 03:30 → WEST WING 03-14 17:13
PROVIDERS: ADMIT Hospitalist; ATTEND Hospitalist
DX: M47.816 Spondylosis without myelopathy or radiculopathy, lumbar region (principal); Z68.41 Body mass index [BMI] 40.0-44.9, adult; E66.9 Obesity, unspecified; M62.838 Other muscle spasm; S39.012A Strain of muscle, fascia and tendon of lower back, initial encounter; S33.5XXA Sprain of ligaments of lumbar spine, initial encounter; E03.9 Hypothyroidism, unspecified; Z90.49 Acquired absence of other specified parts of digestive tract; Z90.710 Acquired absence of both cervix and uterus; X58.XXXA Exposure to other specified factors, initial encounter; Y93.89 Activity, other specified; Y92.89 Other specified places as the place of occurrence of the external cause; Y99.8 Other external cause status; Z79.899 Other long term (current) drug therapy
CPT/HCPCS: 36415; 72128; 72131; 80048; 81001; 85025; 93005; 97110; 97116; 97163; 97530; G0378